=== PATIENT | male | born 1985 | race Two or more races ===

== ENCOUNTER 2018-04-22 11:32 | Emergency (ER) | payer OTHER ==
[~2018-04-22] VITALS: Ht 175.3 cm; Wt 88.2 kg
[2018-04-22] MEDS ORDERED: METHOCARBAMOL 500 MG TABLET PO ONE (12:45)
[2018-04-22] MEDS ORDERED: KETOROLAC TROMETHAMINE 60 MG/2 ML VIAL IM ONE (12:45)
[2018-04-22 14:01] VITALS: BP 124/69
== END 2018-04-22 14:06 | disposition home or self-care (01) ==
LOC: EDBD 11:34 → EMS 11:34
DX: R51 Headache (principal); S00.83XA Contusion of other part of head, initial encounter; M54.2 Cervicalgia; G89.29 Other chronic pain; W22.8XXA Striking against or struck by other objects, initial encounter; Y93.01 Activity, walking, marching and hiking; Y92.89 Other specified places as the place of occurrence of the external cause; Y99.8 Other external cause status
CPT/HCPCS: 96372; 99283; J1885